=== PATIENT | female | born 1985 | race Caucasian/White ===

== ENCOUNTER 2019-08-30 08:43 | Emergency (ER) | payer OTHER, SELFPAY ==
--- NOTE | 2019-08-30 08:48 | DI.RAD.S_ITS ---
PROCEDURE: XR CHEST 2V INDICATIONS: cough and fever TECHNIQUE: 2 views of the chest were acquired. COMPARISON: None. FINDINGS: Surgical changes and devices: None. Lungs and pleura: There is infiltrate seen within the right midlung, which is believed to be within the superior segment of the right lower lobe. Mild interstitial prominence is seen elsewhere. No pneumothorax or pleural effusions are seen. Mediastinum: Mediastinal contours are normal. Heart size is normal. Bones and chest wall: No suspicious bony abnormalities. Soft tissues appear unremarkable. IMPRESSION: Right midlung infiltrate, which is believed to be within the superior segment of the right lower lobe. Dictated by: Rubén Quiroz M.D. on 08/30/2019 at 8:59 Approved by: Rubén Quiroz M.D. on 08/30/2019 at 9:00
[2019-08-30 09:00] VITALS: BP 149/92; PULSE 96; RESP 18; TEMP 36.8; O2SAT 99
[2019-08-30 09:22] VITALS: BP 142/92; PULSE 96; RESP 18; TEMP 36.8; O2SAT 99; BMI 27.4
--- NOTE | 2019-08-30 09:30 | ED_ITS ---
HPI - URI/Sore Throat General Chief Complaint: Upper Respiratory Symptoms Stated Complaint: productive cough/fever ?flu x7days Time Seen by Provider: 08/30/19 08:59 Source: patient Mode of arrival: Family Vehicle Limitations: no limitations History of Present Illness HPI Narrative: 34-year-old female here for evaluation approximately 1 week of cough, congestion, low-grade fevers. Has taken some Advil for her symptoms prior to arrival. Was concerned about possible bronchitis versus pneumonia. Related Data Previous Rx's Medication Instructions Recorded azithromycin See Rx Instructions .ROUTE 08/30/19 .COMPLEX #6 tab Review of Systems Constitutional Constitutional: Reports chills, Reports fever(s) and Denies headache(s) ENT Ears, Nose, Mouth, and Throat: Denies headache(s), Reports nasal congestion, Denies sore throat and Denies throat swelling Cardiovascular Cardiovascular: Denies chest pain and Denies dyspnea Respiratory Respiratory: Reports cough and Denies dyspnea Gastrointestinal Gastrointestinal: Denies abdominal pain Genitourinary Genitourinary: Denies dysuria Integumentary/Breasts Skin/Breast: Denies rash Neurologic Neurologic: Denies behavioral changes and Denies headache(s) Psychiatric Psychiatric: Denies behavioral changes Allergic/Immunologic Allergic/Immunologic: Denies throat swelling Patient History Medical/Surgical History Medical History Patient denies medical problems (Acute) Social History Smoking Status: Never smoker Family/Social History Social History Smoking Status: Never smoker alcohol intake frequency: 0-2 drinks per day Substance Use Type: does not use Exam Initial Vital Signs Initial Vital Signs: Vital Signs Temperature 98.2 F 08/30/19 09:00 Pulse Rate 96 H 08/30/19 09:00 Respiratory Rate 18 08/30/19 09:00 Blood Pressure 149/92 H 08/30/19 09:00 Pulse Oximetry 99 08/30/19 09:00 Const General: cooperative and comfortable Orientation: alert and awake HENMT Head: normal to inspection and normocephalic Ears: TM's normal bilaterally Nose: external nose normal Mouth: oral mucosae normal Throat: posterior oropharynx normal Resp Effort & Inspection: normal respiratory effort Auscultation: clear to auscultation bilaterally Cardio Rate: regular rate Rhythm: regular rhythm Skin Lesions: no lesions Rashes: no rashes Neuro General: alert and awake Cognition: normal cognition Speech: speech normal Extrem General: normal to inspection and capillary refill normal Psych Appearance: grossly normal and well kempt Course Orders Ordered: ED Orders 08/30/19 08:48 XR chest 2V Stat Vital Signs Vital signs: Vital Signs - 8 hr 08/30/19 09:00 08/30/19 09:22 Temperature 98.2 F 98.2 F Pulse Rate 96 H 96 H Respiratory Rate 18 18 Blood Pressure 142/92 H Blood Pressure [Left Arm] 149/92 H Pulse Oximetry 99 99 MDM - URI/Sore Throat Imaging Data Chest x-ray: Radiologist's impression: [address] [address] XRay Report Signed Patient: Arminda Kay HMR#: [id number] : 1985Acct:[id number] Age/Sex: 34 / FDate of Service: 08/30/19 Loc: ED Accession Number: [id number] Procedure: XR chest 2V Ordering Provider: Art Ramachandran D.O. PROCEDURE: XR CHEST 2V INDICATIONS: cough and fever TECHNIQUE: 2 views of the chest were acquired. COMPARISON: None. FINDINGS: Surgical changes and devices: None. Lungs and pleura: There is infiltrate seen within the right midlung, which is believed to be within the superior segment of the right lower lobe. Mild interstitial prominence is seen elsewhere. No pneumothorax or pleural effusions are seen. Mediastinum: Mediastinal contours are normal. Heart size is normal. Bones and chest wall: No suspicious bony abnormalities. Soft tissues appear unremarkable. IMPRESSION: Right midlung infiltrate, which is believed to be within the superior segment of the right lower lobe. Dictated by: Rubén Quiroz M.D. on 08/30/2019 at 8:59 Approved by: Rubén Quiroz M.D. on 08/30/2019 at 9:00 [facility] Narrative Medical decision making narrative: No respiratory distress. Not hypoxic. Chest x-ray is concerning for right-sided infiltrate. Will place on antibiotics. Patient was given return precautions and follow-up instructions. She expressed understanding and agreement with plan. Discharge Plan Departure Patient Disposition: Home Clinical Impression: Pneumonia Qualifiers: Pneumonia type: due to unspecified organism Laterality: right Lung location: lower lobe of lung Qualified Code(s): J18.1 - Lobar pneumonia, unspecified organism Instructions: DI for Pneumonia -- Adult Activity Restrictions/Additional Instructions: Take the antibiotics as directed. Contact your primary provider for a follow- up. Return to the emergency department for any new or worsening symptoms Prescriptions: New azithromycin 250 mg tablet See Rx Instructions .ROUTE .COMPLEX Qty: 6 RF: 0
[2019-08-30 10:29] VITALS: BP 121/74; PULSE 80; RESP 18; O2SAT 97
== END 2019-08-30 10:34 | disposition home or self-care (01) ==
PROVIDERS: Emergency Provider Emergency Medicine
DX: J18.1 Lobar pneumonia, unspecified organism (principal)
CPT/HCPCS: 71046; 99282; 99283

== ENCOUNTER → 2021-03-09 07:05 | Outpatient (CLI) | payer OTHER, SELFPAY ==
--- NOTE | 2021-03-09 | DI.MRI.S_ITS ---
PROCEDURE: MR ORBITS FACE NECK WO/W CON INDICATIONS: OCCIPITAL neuralgia TECHNIQUE: Noncontrast sagittal T1 spin echo, axial FLAIR, axial gradient echo, axial diffusion and ADC acquired through the brain. Coronal STIR, thin-slice axial T1 spin echo through the orbits. After the administration of contrast, thin-slice axial and coronal T1 spin echo with fat saturation through the orbits, axial T1 spin echo with fat saturation through the brain. COMPARISON: None. FINDINGS: Image quality: Excellent. Orbits: Globes are symmetrical. The posterior globes do not appear flattened. The optic nerves are normal in size, without abnormal signal or enhancement. No abnormal fluid can be seen along the courses of the optic nerves. No retrobulbar masses or fat abnormalities. The extra-ocular muscles are normal and symmetric in appearance. Lacrimal glands are normal. Optic chiasm is normal. Periorbital soft tissues appear normal. CSF spaces: Ventricles are normal in size and shape. Basal cisterns are patent. No extra-axial fluid collections. Brain: No intracranial bleeds or mass effects. No abnormal intracranial enhancement. Navarrete-white matter interface is intact. Diffusion weighted images demonstrate no acute ischemic insults. Pituitary gland appears normal, without sellar or suprasellar masses. Brainstem appears normal. Normal intravascular flow voids are present. A largely empty sella can be seen, with the majority of the pituitary tissue flattened along the floor of the sella turcica, which is not considered to be frankly pathologic. Skull and face: Calvarial marrow is normal in signal. Sinuses: Sinuses and mastoids are clear. IMPRESSION: No imaging explanation is found for this patient's presenting symptoms. Normal appearing orbits. No masses or abnormal enhancement can be seen. Dictated by: Rubén Quiroz M.D. on 03/09/2021 at 9:45 Approved by: Rubén Quiroz M.D. on 03/09/2021 at 9:48
== END ==
PROVIDERS: PCP Student in an Organized Health Care Education/Training Program; Referring Provider Student in an Organized Health Care Education/Training Program; Visit Provider Student in an Organized Health Care Education/Training Program
DX: M54.81 Occipital neuralgia (principal)
CPT/HCPCS: 70543

== ENCOUNTER → 2021-03-29 18:33 | Outpatient (CLI) | payer OTHER, SELFPAY ==
--- NOTE | 2021-03-29 18:34 | DI.MRI.S_ITS ---
PROCEDURE: MR CERVICAL SPINE WO CON INDICATIONS: CERVICALGIA TECHNIQUE: Noncontrast sagittal T1 spin echo and T2 fast spin echo, sagittal STIR, foraminal oblique sagittal T2 fast spin echo, and axial gradient echo or T2 fast spin echo through the cervical spine. COMPARISON: None. FINDINGS: Image quality: Excellent. Alignment and Curvature: There is normal bony alignment. Bone Marrow: Marrow demonstrates normal overall signal. Spinal Cord: Visualized spinal cord has normal size and signal. No cerebellar tonsillar herniation. Regional Soft Tissues: No paravertebral masses. Prevertebral soft tissues are normal in thickness. C2-C3: No spinal canal or neural foraminal stenosis. C3-C4: No spinal canal or neural foraminal stenosis. C4-C5: No spinal canal or neural foraminal stenosis. C5-C6: No spinal canal or neural foraminal stenosis. C6-C7: No spinal canal or neural foraminal stenosis. C7-T1: No spinal canal or neural foraminal stenosis. IMPRESSION: Unremarkable MRI of the cervical spine. No significant degenerative change, spinal canal stenosis, or neural foraminal stenosis. Dictated by: Ja Lyles M.D. on 03/30/2021 at 9:00 Approved by: Ja Lyles M.D. on 03/30/2021 at 9:02
== END ==
PROVIDERS: PCP Student in an Organized Health Care Education/Training Program; Referring Provider Nurse Practitioner Family; Visit Provider Nurse Practitioner Family
DX: M54.2 Cervicalgia (principal)
CPT/HCPCS: 72141